=== PATIENT | female | born 2000 | race Caucasian/White ===

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

== ENCOUNTER 2021-07-17 10:12 | Emergency (ER) | payer OTHER, MEDICAID, SELFPAY ==
[2021-07-17 10:50] VITALS: BP 121/60; PULSE 93; RESP 20; TEMP 37.1; O2SAT 99; BMI 16.6
--- NOTE | 2021-07-17 11:15 | HMH.EDUTC ---
[facility] [place] Disposition Clinical Impression: Exposure to COVID-19 virus Disposition: Home, Self-Care Condition on Discharge: Good Instructions: Preventing the Spread of Coronavirus Discharge Instructions Additional Instructions: You have been tested for COVID19. Please isolate as if you are positive until test results received. Return to [facility] if difficulty breathing, etc. Vitamins B, C, D, zinc, quercetin can help. [place]-3's, Mucinex, baby aspirin may help. Sleeping prone (on belly) may help. Take deep breaths frequently, walk around, get outside in sunshine/fresh air if possible. Prescriptions: Guaifenesin/Dextromethorphan [Mucinex Dm ER 1,200-60 mg Tab] 1 tab PO BID 10 Days #20 tab Transmission Status: [facility] to [facility] predniSONE [Prednisone 20mg Tab] 20 mg PO BID 5 Days #10 tab Transmission Status: Pending to [facility] Referrals: Jose Simmons MD [Primary Care Provider] - Time of Disposition: 11:24 Medical Decision Making - Roni Inquiry Pt receiving controlled substance: No Vital Signs: 07/17/21 10:50 Temperature 98.8 F Temperature Source Oral Pulse Rate [Right Brachial] 93 H Respiratory Rate 20 Blood Pressure [Right Arm] 121/60 Blood Pressure Mean [Right Arm] 80 Blood Pressure Source [Right Arm] Automatic Cuff Blood Pressure Position [Right Arm] Sitting 02 Sat by Pulse Oximetry 99 Oxygen Delivery Method Room Air Orders (Tests/Meds): ORDERS Category Date Time Status Covid-19 Nasal PCR ([facility]) Routine Lab 07/17/21 10:56 Received [facility] HPI - General Stated complaint: exposure and symptoms Time Seen by Provider: 07/17/21 11:15 Mode of Arrival: Ambulatory Source of Information: Patient Limitations: No Limitations Description of Symptoms (Recalled from Triage Doc. by RN): COVID TEST D/T EXPOSURE. C/O SORE THROAT, HEADACHE, AND NASAL CONGESTION. HEENT Symptoms (Recalled from RN notes): Yes Resp Symptoms (Recalled from RN notes): No Skin Symptoms (Recalled from RN notes): No MS Symptoms (Recalled from RN notes): No Functional Status (Recalled from RN notes): WNL - History of Present Illness Provider Complaint: Cough, congestion, headache, body aches X 1 day. Has had COVID19 exposure. Onset (ago): day(s) (1) Relieving factors: none Exacerbating factors: none Associated symptoms: cough, malaise Treatments prior to arrival: none - Related Data Previous Rx's Medication Instructions Recorded Guaifenesin/Dextromethorphan 1 tab PO BID 10 Days #20 tab 07/17/21 [Mucinex Dm ER 1,200-60 mg Tab] predniSONE [Prednisone 20mg 20 mg PO BID 5 Days #10 tab 07/17/21 Tab] Allergies Allergy/AdvReac Type Severity Reaction Status Date / Time No Known Allergies Allergy Verified 07/17/21 11:05 - Worker's Comp Is this a Worker's Comp case?: No [facility] History - Hepatitis A Screen Drug use history?: No High risk sexual behaviors?: No History of sexually transmitted infection?: No Currently employed?: No Childcare worker?: No Do you have indoor plumbing?: Yes Do you have electricity?: Yes Attestation statement:: This patient has been screened for Hepatitis A risk factors. I have reviewed the patient's past medical history: Yes ROS Obtained: Yes All systems reviewed & no additional complaints - Constitutional Constitutional: Reports body ache, Reports chills, Reports fever(s), Reports headache(s) - Respiratory Respiratory: Reports chest congestion, Reports cough Physical Exam - General General appearance: alert, in no apparent distress - Head Head exam: normocephalic - Eye Eye exam: Present: PERRL - ENT ENT exam: Present: normal oropharynx, TM's normal bilaterally - Neck Neck exam: Present: normal inspection. Absent: lymphadenopathy - Chest Chest inspection: Present: normal inspection, symmetric chest wall rise - Respiratory Respiratory exam: Present: normal lung sounds bilaterally - Cardiovascular Cardiovascular exam:
[2021-07-17 11:25] VITALS: BP 121/60; PULSE 93; RESP 20; TEMP 37.1; O2SAT 99
== END 2021-07-17 11:30 | disposition home or self-care (01) ==
PROVIDERS: Emergency Provider Physician Assistant; PCP Family Medicine
DX: U07.1 COVID-19 (principal); J02.9 Acute pharyngitis, unspecified
CPT/HCPCS: 99202; C9803; G0463; U0003; U0005

== ENCOUNTER 2022-02-07 11:56 | Emergency (ER) | payer OTHER, MEDICAID, SELFPAY ==
[2022-02-07 12:41] VITALS: BP 119/74; PULSE 64; RESP 19; TEMP 36.9; O2SAT 98; BMI 17.8
--- NOTE | 2022-02-07 12:54 | HMH.EDUTC ---
[facility] [place] Clinical Impression: Sinusitis Qualifiers: Sinusitis location: unspecified location Chronicity: acute Recurrence: non-recurrent Qualified Code(s): J01.90 - Acute sinusitis, unspecified Disposition: Home, Self-Care Condition on Discharge: Good Instructions: DI for Sinusitis Additional Instructions: Drink plenty of fluids. Take tylenol or ibuprofen for pain or fever. Take the medications as directed. Follow up with your regular doctor. GO TO THE ER FOR ANY WORSENING SYMPTOMS Prescriptions: Brompheniramine/Pseudoephed/Dm [Bromfed Dm Cough Syrup] 5 ml PO Q6HP PRN #240 ml PRN Reason: Cough Transmission Status: Received by [facility] Cefdinir [Omnicef 300mg Capsule] 300 mg PO BID #20 cap Transmission Status: Received by [facility] Referrals: Salvador Gamble MD [Primary Care Provider] - Forms: Work/School Release Time of Disposition: 13:14 Medical Decision Making - Medical Records Medical records reviewed: No: I reviewed the patient's medical records. - Roni Inquiry Pt receiving controlled substance: No Vital Signs: 02/07/22 12:41 02/07/22 13:18 Temperature 98.4 F 98.4 F Temperature Source Oral Pulse Rate 64 Pulse Rate [Left] 64 Respiratory Rate 19 19 Blood Pressure 119/74 Blood Pressure [Right Arm] 119/74 Blood Pressure Mean [Right Arm] 89 02 Sat by Pulse Oximetry 98 - Lab Data Lab results reviewed: Yes: I reviewed the patient's lab results. Lab Results 02/07/22 12:47: Influenza Type A Ag Negative, Influenza Type B Ag Negative 02/07/22 12:47: Urine Color Yellow, Urine Appearance Clear, Urine pH 5.0, Ur Specific [place] 1.025, Urine Protein Negative, Urine Glucose (UA) Negative, Urine Ketones Negative, Urine Blood Negative, Urine Nitrate Negative, Urine Bilirubin Negative, Urine Urobilinogen 0.2, Ur Leukocyte Esterase Negative [facility] [place] - General Stated complaint: congestion, cough, sore throat, [place] Time Seen by Provider: 02/07/22 12:54 Mode of Arrival: Ambulatory Source of Information: Patient, Spouse Limitations: No Limitations Description of Symptoms (Recalled from Triage Doc. by RN): pt c/o nasal drainage, congestion and a cough x2 days. pt also states, she woke up last night and had urinary incontinence. HEENT Symptoms (Recalled from RN notes): Yes Resp Symptoms (Recalled from RN notes): Yes Skin Symptoms (Recalled from RN notes): No MS Symptoms (Recalled from RN notes): No Functional Status (Recalled from RN notes): wnl - History of Present Illness Provider Complaint: She states that for the past 5 days she has had nasal congestion, scratchy throat, and a cough. - Related Data Previous Rx's Medication Instructions Recorded Guaifenesin/Dextromethorphan 1 tab PO BID 10 Days #20 tab 07/17/21 [Mucinex Dm ER 1,200-60 mg Tab] predniSONE [Prednisone 20mg 20 mg PO BID 5 Days #10 tab 07/17/21 Tab] Brompheniramine/Pseudoephed/Dm 5 ml PO Q6HP PRN #240 ml 02/07/22 [Bromfed Dm Cough Syrup] Cefdinir [Omnicef 300mg Capsule] 300 mg PO BID #20 cap 02/07/22 Allergies Allergy/AdvReac Type Severity Reaction Status Date / Time No Known Allergies Allergy Verified 07/17/21 11:05 - Worker's Comp Is this a Worker's Comp case?: No [facility] History - Hepatitis A Screen Drug use history?: No High risk sexual behaviors?: No History of sexually transmitted infection?: No Currently employed?: No Childcare worker?: No Do you have indoor plumbing?: Yes Do you have electricity?: Yes Attestation statement:: This patient has been screened for Hepatitis A risk factors. I have reviewed the patient's past medical history: Yes ROS Obtained: Yes All systems reviewed & no additional complaints - Constitutional Constitutional: Reports as per HPI - Eyes Eyes: Denies eye discharge - ENT Ears, Nose, Mouth, and Throat: Reports as per HPI - Cardiovascular Cardiovascular: Denies chest pain - Respiratory Re
[2022-02-07 12:56] LABS: Apearance,Urine Clear (Clear); Color,Urine Yellow (Yellow); Glucose,Urine (UA) Negative (Negative); Ketones,Urine Negative (Negative); Protein,Urine Negative (Negative); Specific Gravity, Urine 1.025 (1.005-1.030)
[2022-02-07 12:57] LABS: Bilirubin,Urine Negative (Negative); Blood, Urine Negative (Negative); UTC Influenza A Antigen Negative (Negative); UTC Leukocyte Esterase,Urine Negative (Negative); UTC Nitrate,Urine Negative (Negative); Urobilinogen,Urine 0.2 EU/dl (0.2)
[2022-02-07 12:58] LABS: UTC Influenza B Antigen Negative (Negative)
[2022-02-07 13:18] VITALS: BP 119/74; PULSE 64; RESP 19; TEMP 36.9; O2SAT 99
== END 2022-02-07 13:18 | disposition home or self-care (01) ==
PROVIDERS: Emergency Provider Nurse Practitioner Family; PCP Family Medicine
DX: J01.90 Acute sinusitis, unspecified (principal); Z79.52 Long term (current) use of systemic steroids
CPT/HCPCS: 81003; 87804; 99213; G0463

== ENCOUNTER 2022-12-26 19:13 | Emergency (ER) | payer BC, SELFPAY ==
[2022-12-26 19:14] VITALS: BP 114/79; PULSE 75; RESP 15; TEMP 36.4; O2SAT 100; BMI 18.3
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
[2022-12-26 20:17] VITALS: BP 116/74; PULSE 79; RESP 18; TEMP 36.8
== END 2022-12-26 20:19 | disposition home or self-care (01) ==
PROVIDERS: Emergency Provider Student in an Organized Health Care Education/Training Program
DX: S09.8XXA Other specified injuries of head, initial encounter (principal); S06.0X0A Concussion without loss of consciousness, initial encounter; S80.11XA Contusion of right lower leg, initial encounter; V86.65XA Passenger of 3- or 4- wheeled all-terrain vehicle (ATV) injured in nontraffic accident, initial encounter
CPT/HCPCS: 70450; 73562; 73590; 99284

== ENCOUNTER 2024-02-02 08:13 | Outpatient (CLI) | payer OTHER, SELFPAY ==
[2024-02-02 09:02] LABS: Basophils # 0.1 K/mm3 (0-0.2); Basophils % 1.4 % (0.1-2.0); Eosinophils # 0.1 K/mm3 (0.0-0.4); Eosinophils % 1.9 % (0.1-12.0); Hematocrit 42.6 % (37.0-47.0); Lymphocytes # 2.2 K/mm3 (0.7-4.5); Lymphocytes % 34.8 % (10-50); Mean Corpuscular HGB Conc 32.9 g/dL (31.8-35.4); Mean Corpuscular Hemoglobin 31.1 pg (27.0-31.2); Mean Corpuscular Volume 94.5 fl (81-99); Mean Platelet Volume 8.1 fl (7.4-10.4); Monocytes # 0.4 K/mm3 (0.1-1.0); Monocytes % 5.7 % (1.7-9.3); Neutrophils # 3.6 K/mm3 (1.8-7.8); Neutrophils % 56.2 % (37.0-80.0); Platelet Count 243 K/mm3 (142-424); Red Blood Count 4.51 M/mm3 (4.20-5.40); Red Cell Distribution Width 13.4 % (11.5-17.5); White Blood Count 6.4 K/mm3 (4.8-10.8)
[2024-02-02 09:28] LABS: Chloride 107 mmol/L (98-107)
[2024-02-02 09:29] LABS: Potassium 3.9 mmoL/L (3.5-5.1); Sodium 140 mmol/L (136-145)
[2024-02-02 09:31] LABS: Alanine Aminotransferase 32 U/L (12-78); Alkaline Phosphatase 60 U/L (38-126); Aspartate Amino Transferase 29 U/L (14-36); Bilirubin,Total 0.8 mg/dl (0.2-1.3); Blood Urea Nitrogen 16 mg/dl (7-17); Estimated Glomerular Filt Rate 90 ml/min (>60); GFR (African American) 109 ML/MIN (>60)
[2024-02-02 09:32] LABS: Albumin Level 4.3 g/dl (3.5-5.0); Anion Gap 9.9 mEq/L (5-15); Calcium 9.8 mg/dl (8.4-10.2); Carbon Dioxide 27 mmol/L (22.0-30.0); Globulin 2.2 g/dL (1.3-3.2); Glucose 96 mg/dl (74-100); Total Protein,Serum 6.5 g/dl (6.3-8.2)
[2024-02-02 09:49] LABS: 25-OH Vitamin D, Total 50.3 ng/mL (30-100)
[2024-02-02 09:50] LABS: Free T4 (Free Thyroxine) 0.97 ng/dl (0.78-2.19)
[2024-02-02 10:01] LABS: Thyroid Stimulating Hormone 2.26 uIU/mL (0.465-4.68)
[2024-02-02 11:18] LABS: Vitamin B12 625 pg/mL (239-931)
[2024-02-03 14:39] LABS: Deamidated Gliadin Abs, IgA 3 units (0-19); Deamidated Gliadin Abs, IgG 2 units (0-19); Tissue Transglutaminase IgA Ab <2 U/mL (0-3); Tissue Transglutaminase IgG Ab <2 U/mL (0-5)
[2024-02-05 13:00] LABS: Endomysial IgA Antibody Negative (Negative)
[2024-02-07 10:31] LABS: Reticulin IgA Antibody Negative titer (Neg:<1:2.5)
== END 2024-02-02 23:59 | disposition home or self-care (01) ==
LOC: LAB 08:16
PROVIDERS: PCP Family Medicine; Visit Provider Family Medicine
DX: R14.0 Abdominal distension (gaseous) (principal); R53.83 Other fatigue; L65.9 Nonscarring hair loss, unspecified
CPT/HCPCS: 36415; 80053; 82306; 82607; 83516; 84439; 84443; 85025; 86255; 86256